=== PATIENT | female | born 1970 | race Caucasian/White ===

== ENCOUNTER 2025-03-03 14:40 | Emergency (ER) | payer OTHER ==
[~2025-03-03] VITALS: Ht 152.4 cm; Wt 77.0 kg
[2025-03-03 14:49] VITALS: TEMP 36.9; O2SAT 98
[2025-03-03] MEDS ORDERED: LIDO-53 TP (16:44)
[2025-03-03] MEDS ORDERED: NAPR-681 MT (16:44)
[2025-03-03] MEDS: NAPROXEN 375MG TABLET PO ONE (16:56)
[2025-03-03] MEDS: LIDOCAINE 5% PATCH TOP SCH (16:57)
[2025-03-03 17:00] VITALS: BP 139/83; PULSE 61; RESP 14; O2SAT 100
== END 2025-03-03 17:12 | disposition home or self-care (01) ==
LOC: ER 14:40
DX: M25.519 Pain in unspecified shoulder (principal); E11.9 Type 2 diabetes mellitus without complications
CPT/HCPCS: 99283